=== PATIENT | female | born 1985 | race Caucasian/White ===

== ENCOUNTER 2021-08-05 14:27 | Emergency (ER) | END 2021-08-05 19:10 | disposition left against medical advice (07) | LOC: CSHERS 14:27 | DX: J02.9 Acute pharyngitis, unspecified (principal); I10 Essential (primary) hypertension; F17.210 Nicotine dependence, cigarettes, uncomplicated ==

== ENCOUNTER 2021-11-25 00:44 | Inpatient (IN) | payer SELFPAY ==
[2021-11-25] MEDS ORDERED: Tetracaine 0.5% PF 4 ML BOT ONE (01:30)
[2021-11-25 02:24] LABS: #Basophils 0.1 10x3/uL (0.0-0.2); #Eosinphils 0.2 10x3/uL (0.0-0.5); #Monocytes 0.9 10x3/uL (0.0-1.1); %Basophils 0.3 % (0.0-2.0); %Eosinophils 0.8 % (0.0-6.0); %Lymphocytes 10.8 % (18.0-47.0); %Monocytes 4.9 % (0.0-10.0); %Neutrophils 82.9 % (40.0-75.0); Hemoglobin 11.5 g/dL (12.0-15.5); Mean Corpuscular Hemoglobin 27.2 pg (27.0-33.0); Mean Corpuscular Volume 82.3 fl (81.6-98.3); Mean Platelet Volume 10.1 fl (7.4-10.4); Platelet Count 374 10x3/uL (150-450); RBC Distribution Width 13.3 % (11.5-14.5); Red Blood Cell (RBC) Count 4.23 10x6/uL (3.90-5.03)
[2021-11-25 02:38] LABS: BHCG - Serum Negative (NEGATIVE); Pregs Control Bar Appear? YES (CONTROL BAR)
[2021-11-25 02:39] LABS: Pregs Control Background? CLEAR/WHITE (CLR/WHITE)
[2021-11-25 02:42] LABS: ALT (SGPT) 10 U/L (8-55); AST (SGOT) 12 U/L (5-34); Albumin 4.3 g/dL (3.5-5.0); Alkaline Phosphatase 82 U/L (40-110); Anion Gap 13 mmol/L (10-20); BUN (Urea Nitrogen) 14 mg/dL (7.0-18.7); Bilirubin, Total 0.3 mg/dL (0.2-1.2); Calc. Creatinine Clearance 0 mL/min (70-130); Calcium 9.3 mg/dL (7.8-10.44); Carbon Dioxide 27 mmol/L (22-29); Chloride 101 mmol/L (98-107); Estimated GFR 102; Globulin 3.8 g/dL (2.4-3.5); Glucose 102 mg/dL (70-105); Potassium 3.4 mmol/L (3.5-5.1); Protein, Total 8.1 g/dL (6.0-8.3); Sodium 138 mmol/L (136-145)
[2021-11-25] MEDS ORDERED: Ondansetron PF 4 MG/2 ML Vial ONE (04:02)
[2021-11-25] MEDS ORDERED: Morphine 4 MG/ML VIAL ONE (04:02)
[2021-11-25] MEDS ORDERED: Labetalol HCl 100 MG/20 ML VIAL ONE (04:26)
[2021-11-25] MEDS ORDERED: Ondansetron PF 4 MG/2 ML Vial IVP PRN (04:41)
[2021-11-25] MEDS ORDERED: Acetaminophen 325 MG TAB PO PRN (04:41)
[2021-11-25] MEDS ORDERED: Senokot S 8.6-50 MG TAB PO PRN (04:41)
[2021-11-25] MEDS ORDERED: Guaifenesin DM 100-10/5 ML UDCUP PO PRN (04:41)
[2021-11-25] MEDS ORDERED: Calcium Carbonate 500 MG ChewTAB PO PRN (04:41)
[2021-11-25] MEDS ORDERED: hydrALAZINE 20 MG/ML VIAL SLOW IVP PRN (04:51)
[2021-11-25] MEDS ORDERED: Nitroglycerin 2% Ointment 1 INCH/1 GM Packet TOP SCH (05:00)
[2021-11-25] MEDS ORDERED: Lactated Ringer's 1,000 ML IV SCH (05:00)
[2021-11-25] MEDS ORDERED: Ketorolac Tromethamine 30 MG/ML VIAL IVP SCH (05:00)
[2021-11-25] MEDS ORDERED: Potassium Chloride 20 MEQ TAB PO SCH (05:00)
[2021-11-25 06:17] VITALS: BMI 28.1
[2021-11-25] MEDS ORDERED: Vancomycin HCl 500 MG in Sodium Chloride 0.9% 100 ML IVPB SCH ×2 (06:45→11:15)
[2021-11-25] MEDS ORDERED: Iopamidol 300 61% 100 ML VIAL FS ONE (09:10)
[2021-11-25] MEDS: Ciprofloxacin 0.3% Ophth Soln 2.5 ml Bottle EA EYE SCH ×3 (11:24→21:41)
[2021-11-25] MEDS: NEOMYCIN-POLYMYXIN-HC EAR SUSP 200 DROP/10 ML BOT L EAR SCH ×3 (11:25→21:55)
[2021-11-25] MEDS: HYDROcodone/Acetaminophen 5/325 mg Tablet PO PRN ×4 (11:26→23:56)
[2021-11-25] MEDS: Nicotine 21 MG PATCH TD SCH (11:26)
[2021-11-25] MEDS: Losartan Potassium 50 MG TAB PO SCH (11:27)
[2021-11-25] MEDS ORDERED: Vancomycin 1 GM in Premix Bag 1 BAG IVPB SCH (16:00)
[2021-11-25 20:24] LABS: SARS-CoV-2 NAA Rapid Test Not Detected (NotDetected)
[2021-11-25] MEDS: VANCOMYCIN 1.25 GM/250 ML BAG 1.25 GM in Premix Bag 1 BAG IVPB SCH (21:39)
[2021-11-25] MEDS: Enoxaparin Sodium 40 MG/0.4 ML SYRINGE SC SCH (22:04)
[2021-11-26] MEDS: HYDROcodone/Acetaminophen 5/325 mg Tablet PO PRN ×5 (04:01→22:42)
[2021-11-26 04:28] LABS: #Eosinphils 0.2 10x3/uL (0.0-0.5); #Monocytes 0.5 10x3/uL (0.0-1.1); #Neutrophils 5.2 10x3/uL (1.5-8.4); %Basophils 0.4 % (0.0-2.0); %Eosinophils 3.3 % (0.0-6.0); %Monocytes 6.1 % (0.0-10.0); %Neutrophils 70.9 % (40.0-75.0); Hemoglobin 10.6 g/dL (12.0-15.5); Mean Corpuscular HGB CONC 31.9 g/dL (32.0-36.0); Mean Corpuscular Hemoglobin 26.8 pg (27.0-33.0); Mean Corpuscular Volume 84.1 fl (81.6-98.3); Mean Platelet Volume 9.8 fl (7.4-10.4); Platelet Count 305 10x3/uL (150-450); RBC Distribution Width 13.4 % (11.5-14.5); Red Blood Cell (RBC) Count 3.95 10x6/uL (3.90-5.03); White Blood Cell (WBC) Count 7.4 10x3/uL (3.5-10.5)
[2021-11-26 04:36] LABS: Anion Gap 11 mmol/L (10-20); BUN (Urea Nitrogen) 15 mg/dL (7.0-18.7); CRP (Inflammatory) 5.67 mg/dL (= or < 0.5); Calc. Creatinine Clearance 139 mL/min (70-130); Calcium 8.9 mg/dL (7.8-10.44); Carbon Dioxide 30 mmol/L (22-29); Chloride 104 mmol/L (98-107); Estimated GFR 106; Glucose 124 mg/dL (70-105); Potassium 3.9 mmol/L (3.5-5.1); Sodium 141 mmol/L (136-145)
[2021-11-26] MEDS: VANCOMYCIN 1.25 GM/250 ML BAG 1.25 GM in Premix Bag 1 BAG IVPB SCH ×2 (05:54→18:39)
[2021-11-26] MEDS: NEOMYCIN-POLYMYXIN-HC EAR SUSP 200 DROP/10 ML BOT L EAR SCH ×3 (08:19→20:18)
[2021-11-26] MEDS: Ciprofloxacin 0.3% Ophth Soln 2.5 ml Bottle EA EYE SCH ×3 (08:20→20:18)
[2021-11-26] MEDS: Nicotine 21 MG PATCH TD SCH (08:21)
[2021-11-26] MEDS: Losartan Potassium 50 MG TAB PO SCH (08:21)
[2021-11-26 12:54] LABS: Hemoglobin A1c 5.1 % (4.0-6.0)
[2021-11-26 14:47] LABS: Syphilis Antibody Nonreactive (Nonreactive); Syphilis Antibody Index 0.04 S/CO (<1.00 Non-Reactive)
[2021-11-26 18:11] LABS: Vancomycin, Trough 12.3 ug/mL
[2021-11-26] MEDS: Enoxaparin Sodium 40 MG/0.4 ML SYRINGE SC SCH (20:18)
[2021-11-27] MEDS: HYDROcodone/Acetaminophen 5/325 mg Tablet PO PRN ×5 (03:12→20:54)
[2021-11-27 04:45] LABS: HIV (1/2) Antibody/Antigen Non-Reactive (NonReactive)
[2021-11-27] MEDS: VANCOMYCIN 1.25 GM/250 ML BAG 1.25 GM in Premix Bag 1 BAG IVPB SCH ×2 (05:29→17:23)
[2021-11-27 05:33] LABS: HIV 1/2 INDEX 0.11 S/CO (<1.00)
[2021-11-27] MEDS: Ciprofloxacin 0.3% Ophth Soln 2.5 ml Bottle EA EYE SCH ×3 (08:03→20:57)
[2021-11-27] MEDS: NEOMYCIN-POLYMYXIN-HC EAR SUSP 200 DROP/10 ML BOT L EAR SCH ×3 (08:04→20:57)
[2021-11-27] MEDS: Nicotine 21 MG PATCH TD SCH (08:05)
[2021-11-27] MEDS ORDERED: Pregabalin 75 MG CAP PO SCH (14:00)
[2021-11-27] MEDS ORDERED: Dexamethasone 0.1% OPTH SOLN R EYE SCH (17:00)
[2021-11-27] MEDS: Dexamethasone 0.1% OPTH SOLN EA EYE SCH ×2 (17:22→20:56)
[2021-11-27] MEDS: Pregabalin 75 MG CAP PO SCH (20:55)
[2021-11-27] MEDS: Enoxaparin Sodium 40 MG/0.4 ML SYRINGE SC SCH (20:56)
[2021-11-28] MEDS: Dexamethasone 0.1% OPTH SOLN EA EYE SCH ×6 (01:11→20:45)
[2021-11-28] MEDS: HYDROcodone/Acetaminophen 5/325 mg Tablet PO PRN ×5 (03:52→20:43)
[2021-11-28] MEDS: VANCOMYCIN 1.25 GM/250 ML BAG 1.25 GM in Premix Bag 1 BAG IVPB SCH ×2 (05:39→17:33)
[2021-11-28 05:52] LABS: Vancomycin, Trough 11.5 ug/mL
[2021-11-28] MEDS: Pregabalin 75 MG CAP PO SCH ×2 (08:31→20:44)
[2021-11-28] MEDS: Nicotine 21 MG PATCH TD SCH (08:32)
[2021-11-28] MEDS: Ciprofloxacin 0.3% Ophth Soln 2.5 ml Bottle EA EYE SCH ×3 (10:31→20:45)
[2021-11-28] MEDS: NEOMYCIN-POLYMYXIN-HC EAR SUSP 200 DROP/10 ML BOT L EAR SCH ×3 (10:32→20:45)
[2021-11-28] MEDS: Enoxaparin Sodium 40 MG/0.4 ML SYRINGE SC SCH (20:44)
[2021-11-29] MEDS: HYDROcodone/Acetaminophen 5/325 mg Tablet PO PRN ×6 (00:36→21:56)
[2021-11-29] MEDS: Dexamethasone 0.1% OPTH SOLN EA EYE SCH ×6 (00:37→21:57)
[2021-11-29] MEDS: VANCOMYCIN 1.25 GM/250 ML BAG 1.25 GM in Premix Bag 1 BAG IVPB SCH (05:33)
[2021-11-29] MEDS: Pregabalin 75 MG CAP PO SCH ×2 (10:24→21:55)
[2021-11-29] MEDS: Amlodipine 10 MG TAB PO SCH (10:26)
[2021-11-29] MEDS: NEOMYCIN-POLYMYXIN-HC EAR SUSP 200 DROP/10 ML BOT L EAR SCH ×3 (10:27→21:58)
[2021-11-29] MEDS: Ciprofloxacin 0.3% Ophth Soln 2.5 ml Bottle EA EYE SCH ×3 (10:27→21:57)
[2021-11-29] MEDS: Nicotine 21 MG PATCH TD SCH (10:39)
[2021-11-29] MEDS ORDERED: Melatonin 3 MG TAB PO PRN (19:50)
[2021-11-29] MEDS: Doxycycline 100 MG CAP PO SCH (21:55)
[2021-11-29] MEDS: Enoxaparin Sodium 40 MG/0.4 ML SYRINGE SC SCH (21:55)
[2021-11-30] MEDS: Dexamethasone 0.1% OPTH SOLN EA EYE SCH ×6 (01:43→20:29)
[2021-11-30] MEDS: HYDROcodone/Acetaminophen 5/325 mg Tablet PO PRN ×5 (01:44→20:29)
[2021-11-30] MEDS: Pregabalin 75 MG CAP PO SCH ×2 (09:53→20:30)
[2021-11-30] MEDS: Nicotine 21 MG PATCH TD SCH (09:53)
[2021-11-30] MEDS: Amlodipine 10 MG TAB PO SCH (09:53)
[2021-11-30] MEDS: Doxycycline 100 MG CAP PO SCH ×2 (09:54→20:30)
[2021-11-30] MEDS: NEOMYCIN-POLYMYXIN-HC EAR SUSP 200 DROP/10 ML BOT L EAR SCH ×3 (09:54→20:29)
[2021-11-30] MEDS: Ciprofloxacin 0.3% Ophth Soln 2.5 ml Bottle EA EYE SCH ×3 (09:55→20:29)
[2021-11-30] MEDS: Enoxaparin Sodium 40 MG/0.4 ML SYRINGE SC SCH (20:29)
[2021-12-01] MEDS: Dexamethasone 0.1% OPTH SOLN EA EYE SCH ×6 (02:29→20:56)
[2021-12-01] MEDS: HYDROcodone/Acetaminophen 5/325 mg Tablet PO PRN ×4 (05:34→20:55)
[2021-12-01] MEDS: Ciprofloxacin 0.3% Ophth Soln 2.5 ml Bottle EA EYE SCH ×3 (09:26→20:56)
[2021-12-01] MEDS: Nicotine 21 MG PATCH TD SCH (09:27)
[2021-12-01] MEDS: Amlodipine 10 MG TAB PO SCH (09:27)
[2021-12-01] MEDS: NEOMYCIN-POLYMYXIN-HC EAR SUSP 200 DROP/10 ML BOT L EAR SCH ×3 (09:27→20:55)
[2021-12-01] MEDS: Doxycycline 100 MG CAP PO SCH ×2 (09:28→20:55)
[2021-12-01] MEDS: Pregabalin 75 MG CAP PO SCH (09:28)
[2021-12-01] MEDS: Enoxaparin Sodium 40 MG/0.4 ML SYRINGE SC SCH (20:55)
[2021-12-02] MEDS: HYDROcodone/Acetaminophen 5/325 mg Tablet PO PRN ×3 (01:49→09:45)
[2021-12-02] MEDS: Dexamethasone 0.1% OPTH SOLN EA EYE SCH ×3 (01:50→09:44)
[2021-12-02 09:28] VITALS: BP 151/97; TEMP 97.5
[2021-12-02] MEDS: Nicotine 21 MG PATCH TD SCH (09:43)
[2021-12-02] MEDS: NEOMYCIN-POLYMYXIN-HC EAR SUSP 200 DROP/10 ML BOT L EAR SCH (09:44)
[2021-12-02] MEDS: Ciprofloxacin 0.3% Ophth Soln 2.5 ml Bottle EA EYE SCH (09:45)
[2021-12-02] MEDS: Amlodipine 10 MG TAB PO SCH (09:46)
[2021-12-02] MEDS: Doxycycline 100 MG CAP PO SCH (09:46)
== END 2021-12-02 13:15 | disposition home or self-care (01) | DRG 872 ==
LOC: CSHERS 00:44 → CSHTELE 06:08
PROVIDERS: ADMIT Student in an Organized Health Care Education/Training Program; ATTEND Internal Medicine
PROC: 3E0234Z Introduction of Serum, Toxoid and Vaccine into Muscle, Percutaneous Approach (ICD-10-PCS; principal; 2021-11-25)
DX: A41.9 Sepsis, unspecified organism (principal); H20.00 Unspecified acute and subacute iridocyclitis; R59.0 Localized enlarged lymph nodes; I10 Essential (primary) hypertension; F17.210 Nicotine dependence, cigarettes, uncomplicated; E87.6 Hypokalemia; I16.0 Hypertensive urgency; H60.92 Unspecified otitis externa, left ear; Z71.6 Tobacco abuse counseling; Z90.89 Acquired absence of other organs; Z88.0 Allergy status to penicillin; Z88.1 Allergy status to other antibiotic agents; Z80.9 Family history of malignant neoplasm, unspecified; Z91.14 Patient's other noncompliance with medication regimen; Z20.822 Contact with and (suspected) exposure to COVID-19
CPT/HCPCS: 36415; 36416; 70491; 80048; 80053; 80202; 82565; 83036; 83605; 84703; 85025; 85652; 86140; 86780; 87040; 87070; 87205; 87389; 87633; 87798; 93005; 93010; 96365; 96375; 97139; J0744; J1650; J1885; J2270; J2405; J3370; J3490; J7120; Q9967; U0002

== ENCOUNTER 2022-09-01 13:05 | Emergency (ER) | payer SELFPAY ==
[2022-09-01] MEDS ORDERED: Ketorolac Tromethamine 30 MG/ML VIAL ONE (14:28)
[2022-09-01 14:48] LABS: #Eosinphils 0.2 10x3/uL (0.0-0.5); #Monocytes 0.4 10x3/uL (0.0-1.1); #Neutrophils 5.4 10x3/uL (1.5-8.4); %Basophils 0.4 % (0.0-2.0); %Eosinophils 2.7 % (0.0-6.0); %Lymphocytes 21.4 % (18.0-47.0); %Monocytes 5.2 % (0.0-10.0); Mean Corpuscular HGB CONC 32.1 g/dL (32.0-36.0); Mean Corpuscular Hemoglobin 25.1 pg (27.0-33.0); Mean Corpuscular Volume 78.3 fl (81.6-98.3); Mean Platelet Volume 9.9 fl (7.4-10.4); Platelet Count 402 10x3/uL (150-450); RBC Distribution Width 14.5 % (11.5-14.5); Red Blood Cell (RBC) Count 4.38 10x6/uL (3.90-5.03); White Blood Cell (WBC) Count 7.7 10x3/uL (3.5-10.5)
[2022-09-01 14:59] LABS: PTT 27.9 sec (22.0-33.0); Prothrombin Time 10.5 sec (9.5-12.1)
[2022-09-01 15:07] LABS: Acetaminophen Less than 10 mcg/mL (10.0-30.0); Alcohol Less than 10.0 mg/dL (Less than 10); Lipase 39 U/L (8-78); Magnesium 1.9 mg/dL (1.6-2.6); Salicylate Less than 8.0 mg/dL (15.0-30.0)
[2022-09-01 15:10] LABS: ALT (SGPT) 18 U/L (8-55); AST (SGOT) 16 U/L (5-34); Alkaline Phosphatase 71 U/L (40-110); Anion Gap 11 mmol/L (10-20); BUN (Urea Nitrogen) 15 mg/dL (7.0-18.7); Bilirubin, Total 0.2 mg/dL (0.2-1.2); CK (CPK) 93 U/L (29-168); Calc. Creatinine Clearance 0 mL/min (70-130); Calcium 8.9 mg/dL (7.8-10.44); Carbon Dioxide 31 mmol/L (22-29); Chloride 102 mmol/L (98-107); Estimated GFR 101; Globulin 3.1 g/dL (2.4-3.5); Glucose 94 mg/dL (70-105); Potassium 3.2 mmol/L (3.5-5.1); Protein, Total 7.1 g/dL (6.0-8.3); Sodium 141 mmol/L (136-145)
[2022-09-01] MEDS ORDERED: Potassium Chloride 20 MEQ TAB ONE (15:31)
== END 2022-09-01 15:52 | disposition home or self-care (01) ==
LOC: CSHERS 13:05
DX: L25.9 Unspecified contact dermatitis, unspecified cause (principal); L03.211 Cellulitis of face; I10 Essential (primary) hypertension; F17.210 Nicotine dependence, cigarettes, uncomplicated
CPT/HCPCS: 36415; 80053; 80307; 82550; 83605; 83690; 83735; 85025; 85610; 85730; 86140; 87040; 96361; 96374; J1885